=== PATIENT | female | born 2005 | race African-American/Black ===

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

== ENCOUNTER 2024-05-19 11:21 | Emergency (ER) | payer MEDICAID ==
[~2024-05-19] VITALS: Ht 167.6 cm; Wt 77.0 kg
[2024-05-19 11:25] VITALS: O2SAT 100
[2024-05-19 11:40] VITALS: BP 112/67; RESP 16; TEMP 98.3; O2SAT 100
[2024-05-19] MEDS ORDERED: IBUPROFEN 800MG TABLET PO ONE (14:00)
[2024-05-19] MEDS ORDERED: IBUP-2030 MT (15:15)
[2024-05-19] MEDS ORDERED: CYCL5TAB3 MT (15:15)
[2024-05-19 16:03] VITALS: PULSE 62
[2024-05-19] MEDS: IBUPROFEN 800MG TABLET PO NR (16:03)
== END 2024-05-19 16:13 | disposition home or self-care (01) ==
LOC: ER 11:21
DX: G89.11 Acute pain due to trauma (principal); M54.50 Low back pain, unspecified; J45.909 Unspecified asthma, uncomplicated; V43.52XA Car driver injured in collision with other type car in traffic accident, initial encounter; Y93.89 Activity, other specified; Y92.89 Other specified places as the place of occurrence of the external cause; Y99.8 Other external cause status
CPT/HCPCS: 72100; 81025; 99283